=== PATIENT | female | born 1940 | race Caucasian/White ===

== ENCOUNTER 2021-07-31 12:06 | Outpatient (REF) | payer MEDICARE, MEDICAID, SELFPAY ==
[2021-07-31 13:49] LABS: Hematocrit 38.5 % (37.0-47.0); Hemoglobin 12.7 g/dl (12.0-16.0); Mean Corpuscular Hemoglobin 35.2 pg (27.0-33.0); Mean Corpuscular Volume 106.6 fL (80.0-98.0); Mean Platelet Volume 11.5 fL (9.4-12.3); Platelet Count 166 X10*3/uL (160-400); Red Blood Count 3.61 X10*6/uL (4.20-5.50); White Blood Count 7.7 X10*3/uL (4.8-10.8)
[2021-07-31 14:04] LABS: Alanine Aminotransferase 11 U/L (0-31); Albumin Level 3.7 g/dL (3.5-5.0); Alkaline Phosphatase 83 U/L (39-117); Anion Gap 11 (12-20); Aspartate Amino Transferase 37 U/L (5-31); Bilirubin Total 0.8 mg/dL (0.0-1.0); Blood Urea Nitrogen 13 mg/dL (9-16); Calcium 9.4 mg/dL (8.4-10.2); Carbon Dioxide 28 mmol/L (22-29); Chloride 104 mmol/L (96-108); Cholesterol 187 mg/dL; Estimated Glomerular Filt Rate > 60; Glucose Fasting 196 mg/dL (60-99); HDL Cholesterol 53 mg/dL; LDL Cholesterol Calculated 105 mg/dl; Potassium 4.5 mmol/L (3.3-5.1); Sodium 138 mmol/L (135-145); Total Protein 6.9 g/dL (6.5-8.0); Triglycerides 146 mg/dL
[2021-07-31 16:27] LABS: Estimated Average Glucose 111 mg/dL; Hemoglobin A1C 126.3166 umol/L; Hemoglobin A1c % 5.5 %
== END 2021-07-31 12:07 | disposition home or self-care (01) ==
LOC: HO.HMGCLDS 12:06
PROVIDERS: PCP Internal Medicine; Visit Provider Internal Medicine
DX: E78.5 Hyperlipidemia, unspecified (principal); I10 Essential (primary) hypertension; R73.9 Hyperglycemia, unspecified
CPT/HCPCS: 36415; 80053; 80061; 83036; 85027

== ENCOUNTER → 2022-10-08 13:53 | Outpatient (REF) | payer MEDICARE, MEDICAID, SELFPAY | LOC: HO.CARD 13:53 | PROVIDERS: Visit Provider Internal Medicine | DX: Z00.00 Encounter for general adult medical examination without abnormal findings (principal); I48.91 Unspecified atrial fibrillation; R73.9 Hyperglycemia, unspecified; I10 Essential (primary) hypertension; E78.5 Hyperlipidemia, unspecified | CPT/HCPCS: 93225; 93306 ==

== ENCOUNTER 2022-10-21 13:17 | Outpatient (AMB) | payer OTHER, MEDICAID, SELFPAY ==
[2022-10-21 13:20] VITALS: BP 134/80; PULSE 97; O2SAT 96; BMI 31.2
--- NOTE | 2022-10-21 13:20 | MHC.PC.OV ---
Vital Signs 10/21/22 13:20 Height 5 ft Weight 160 lb BMI 31.2 BP 134/80 Blood Pressure Location Lt brachial Position Sitting Pulse 97 Pulse Source Pulse Oximeter Pulse Oximetry (%) 96 Oxygen Delivery Method Room Air Intake Visit Reasons: 4 weeks follow up Intake Note: Pt is here today for a follow up visit on 4 weeks follow up visit. Allergies ciprofloxacin [Cipro] Allergy (Unknown, Verified 10/21/22 13:22) weakness dizziness metronidazole [Flagyl] Allergy (Unknown, Verified 10/21/22 13:22) Dizziness Medication List - Last Reconciled 10/21/22 by Jane Plunkett MD latanoprost 0.005% 0 drps ophthalmic (eye) lisinopril 30 mg PO DAILY metoprolol succinate ER 25 mg PO DAILY metoprolol succinate ER 50 mg PO DAILY omega-3 fatty acids (Fish Oil Concentrate) 1,000 mg PO DAILY pravastatin 40 mg PO DAILY Tobacco use date assessed: 09/15/22 Dental Screening Dental Screen Date: 10/21/22 Did you have a dental visit in the last 12 months?: Yes Did you have a dental problem in the last 6 months where you did not have access to dental care?: No Was dental information given to patient?: Patient has dentist HPI 4 weeks follow up HPI Details Patient presents for the follow-up of after tachycardia. Holter monitor was negative for AFib showed frequent APCs. echocardiogram showed hyperdynamic ejection fraction >70%, heavy mitral valve calcification, mild to moderate mitral stenosis and mild mitral regurgitation. [facility] Medical History (Updated 10/21/22 @ 14:00 by Jane Plunkett MD) Abdominal wall hernia Annual physical exam Diverticulosis HTN (hypertension) Hyperglycemia Hyperlipidemia Mammogram normal Normal colonoscopy Surgical History Hx of colectomy Total knee replacement status Family History Father No problems noted. Mother Hypertension Social History Household Members Other:: , retired, 2 adult children, 11 grandchildren Housing: House Alcohol intake: current Alcohol intake frequency: holidays/special occasions only Patient Tobacco Use Status: Never used Tobacco e-Cigarette/Vaping Use: Never Used Current occupational status: retired Cognitive needs: No Hearing needs: No Vision needs: Yes Questionnaire Thrive Questionnaire Date Thrive assessed: 09/15/22 FELA-7 AMB Questionnaire FELA-7 Date FELA - 7 assessed: 09/15/22 Source: Developed by Drs. Tal Metcalf, Mary Lou Higginbotham, Orlando Brown and colleagues, with an educational char from [employer]. Review of Systems Const All systems reviewed & are unremarkable except as noted in HPI and below Reports no additional complaints Eyes Reports no additional complaints ENT Reports no additional complaints Card Reports no additional complaints Resp Reports no additional complaints GI Reports no additional complaints Reports no additional complaints Physical exam (Primary Care) Vital Signs: Last Vital Signs Pulse 97 10/21/22 13:20 BP 134/80 10/21/22 13:20 Pulse Ox 96 10/21/22 13:20 Oxygen Delivery Method Room Air 10/21/22 13:20 BMI result Body Mass Index 31.2 Tobacco/Smoking Status: Tobacco use Status Tobacco use date assessed 09/15/22 10/21/22 13:27 Patient Tobacco Use Status Never used Tobacco 10/21/22 13:27 e-Cigarette/Vaping Use Never Used 10/21/22 13:27 Thrive Assessment: Date of Thrive Assessment Date Thrive assessed 09/15/22 10/21/22 13:27 HENMT Head: Yes normal to inspection Throat: Yes posterior oropharynx normal Resp Effort & Inspection: normal respiratory effort Auscultation: clear to auscultation bilaterally Cardio Rhythm: regular rhythm Heart sounds: S1 normal heart sound present and S2 normal heart sound present GI Inspection: Yes normal to inspection Palpation (GI): Soft to palpation Auscultation: normal bowel sounds Assessment and Plan Assessment & Plan (1) Atrial tachycardia: Comment: Holter 10/01, frequent APCs, echo with hyperdynamic left ventriclular systolic function, heavy mitral valve calcifications mild mitral regurgitation, mild to moderate mitral stenosis 10/01 Code(s): I47.1 - Supraventricular tachycardia Plan: Continue metoprolol. (2) Hyperlipidemia: Code(s): E78.5 - Hyperlipidemia, unspecified Plan: Continue statin (3) HTN (hypertension): Code(s): I10 - Essential (primary) hypertension Plan: Continue lisinopril and return for fasting blood work. Follow-up in 3 months Medications: Refilled lisinopril 30 mg PO DAILY 90 tabs 3RF Discontinued metoprolol succinate ER Discontinued Reason: Doctor's Order 25 mg PO DAILY 90 tabs 3RF Coding Level of Care Code Est Pt Level 4 (14399) Diagnoses Atrial tachycardia I47.1 Hyperlipidemia E78.5 HTN (hypertension) I10
== END 2022-10-21 14:03 | disposition home or self-care (01) ==
PROVIDERS: Visit Provider Internal Medicine
DX: I47.1 Supraventricular tachycardia (principal); E78.5 Hyperlipidemia, unspecified; I10 Essential (primary) hypertension
CPT/HCPCS: 99214

== ENCOUNTER 2022-12-20 08:52 | Outpatient (REF) | payer MEDICARE, MEDICAID, SELFPAY ==
[2022-12-20 11:19] LABS: MANUAL DIFF FLAG NO
[2022-12-20 12:08] LABS: Estimated Average Glucose 114 mg/dL; Hemoglobin A1c % 5.6 % (<6.0)
[2022-12-20 12:20] LABS: Alanine Aminotransferase 16 U/L (0-31); Albumin Level 3.6 g/dL (3.5-5.0); Alkaline Phosphatase 71 U/L (39-117); Anion Gap 11 (12-20); Aspartate Amino Transferase 37 U/L (5-31); Bilirubin Total 0.7 mg/dL (0.0-1.0); Blood Urea Nitrogen 14 mg/dL (9-16); Calcium 9.7 mg/dL (8.4-10.2); Carbon Dioxide 27 mmol/L (22-29); Chloride 107 mmol/L (96-108); Cholesterol 158 mg/dL (<200); Estimated Glomerular Filt Rate > 60; Glucose Fasting 153 mg/dL (60-99); HDL Cholesterol 43 mg/dL (>40); LDL Cholesterol Calculated 88 mg/dL (<100); Magnesium 1.8 mg/dL (1.6-2.6); Sodium 141 mmol/L (135-145); Total Protein 7.2 g/dL (6.5-8.0); Triglycerides 139 mg/dL (<150)
[2022-12-20 12:30] LABS: TSH reflex Free T4 1.06 uIU/mL (0.32-4.0)
[2022-12-20 12:33] LABS: Creatinine Urine 161.15 mg/dL; Microalbumin Urine < 5.0 mg/L
[2022-12-20 13:05] LABS: Basophils Percent Auto 0.6 % (0-2); Eosinophils Absolute Auto 0.3 X10*3/uL (0.0-0.4); Eosinophils Percent Auto 4.2 % (0-4); Hematocrit 41.2 % (37.0-47.0); Hemoglobin 13.8 g/dl (12.0-16.0); Imm Gran Abs Auto 0.03 X10*3/uL (0.00-0.03); Imm Gran Pct Auto 0.5 % (0.0-0.4); Lymphocytes Absolute Auto 2.2 X10*3/uL (1.2-4.9); Lymphocytes Percent Auto 35.6 % (20-40); Mean Corpuscular HGB Conc 33.5 g/dl (31.0-35.0); Mean Corpuscular Hemoglobin 34.7 pg (27.0-33.0); Mean Corpuscular Volume 103.5 fL (80.0-98.0); Mean Platelet Volume 11.3 fL (9.4-12.3); Monocytes Absolute Auto 0.5 X10*3/uL (0.1-1.2); Monocytes Percent Auto 8.6 % (2-11); Neutrophils Absolute Auto 3.2 x10*3/uL (2.0-8.3); Neutrophils Percent Auto 50.5 % (45-73); Platelet Count 171 X10*3/uL (160-400); Red Blood Count 3.98 X10*6/uL (4.20-5.50); Red Cell Distribution Width 12.8 % (11.0-16.0); White Blood Count 6.3 X10*3/uL (4.8-10.8)
== END 2022-12-20 08:53 | disposition home or self-care (01) ==
LOC: HO.HMGCLDS 08:52
PROVIDERS: PCP Internal Medicine; Visit Provider Internal Medicine
DX: Z00.00 Encounter for general adult medical examination without abnormal findings (principal); I48.91 Unspecified atrial fibrillation; R73.9 Hyperglycemia, unspecified; E78.5 Hyperlipidemia, unspecified; I10 Essential (primary) hypertension
CPT/HCPCS: 36415; 80053; 80061; 82043; 82570; 83036; 83735; 84443; 85025

== ENCOUNTER 2023-01-21 12:30 | Outpatient (AMB) | payer OTHER, MEDICAID, SELFPAY ==
[2023-01-21 12:31] VITALS: BP 130/80; PULSE 87; O2SAT 98; BMI 31.2
--- NOTE | 2023-01-21 12:31 | A.OFFPC_ITS ---
Vital Signs 01/21/23 12:31 Height 5 ft Weight 160 lb BMI 31.2 BP 130/80 Blood Pressure Location Lt brachial Position Sitting Pulse 87 Pulse Source Pulse Oximeter Pulse Oximetry (%) 98 Oxygen Delivery Method Room Air Intake Visit Reasons: 3m follow up HTN Intake Note: Pt is here today for 3 months follow up visit on HTN. Allergies ciprofloxacin [Cipro] Allergy (Unknown, Verified 01/21/23 12:35) weakness dizziness metronidazole [Flagyl] Allergy (Unknown, Verified 01/21/23 12:35) Dizziness Medication List - Last Reconciled 01/21/23 by Jane Plunkett MD latanoprost 0.005% 0 drps ophthalmic (eye) lisinopril 30 mg PO DAILY metoprolol succinate ER 50 mg PO DAILY omega-3 fatty acids (Fish Oil Concentrate) 1,000 mg PO DAILY pravastatin 40 mg PO DAILY Tobacco use date assessed: 09/15/22 HPI 3m follow up HTN HPI Details Pt presents for HTN and hyperlipid, stable on meds. Patient is upset because off her 's illness [facility] Medical History Hyperglycemia Annual physical exam Hyperlipidemia HTN (hypertension) Normal colonoscopy Abdominal wall hernia Mammogram normal Diverticulosis Surgical History Hx of colectomy Total knee replacement status Family History Father No problems noted. Mother Hypertension Social History Household Members Other:: , retired, 2 adult children, 11 grandchildren Housing: House Alcohol intake: current Alcohol intake frequency: holidays/special occasions only Patient Tobacco Use Status: Never used Tobacco e-Cigarette/Vaping Use: Never Used Current occupational status: retired Cognitive needs: No Hearing needs: No Vision needs: Yes Questionnaire Thrive Questionnaire Date Thrive assessed: 09/15/22 FELA-7 AMB Questionnaire FELA-7 Date FELA - 7 assessed: 09/15/22 Source: Developed by Drs. Tal Metcalf, Mary Lou Higginbotham, Orlando Brown and colleagues, with an educational char from [employer]. Review of Systems Const All systems reviewed & are unremarkable except as noted in HPI and below Reports no additional complaints Eyes Reports no additional complaints ENT Reports no additional complaints Card Reports no additional complaints Resp Reports no additional complaints GI Reports no additional complaints Reports no additional complaints Physical exam (Primary Care) Vital Signs: Last Vital Signs Pulse 87 01/21/23 12:31 BP 130/80 01/21/23 12:31 Pulse Ox 98 01/21/23 12:31 Oxygen Delivery Method Room Air 01/21/23 12:31 BMI result Body Mass Index 31.2 Tobacco/Smoking Status: Tobacco use Status Tobacco use date assessed 09/15/22 01/21/23 12:37 Patient Tobacco Use Status Never used Tobacco 01/21/23 12:37 e-Cigarette/Vaping Use Never Used 01/21/23 12:37 Thrive Assessment: Date of Thrive Assessment Date Thrive assessed 09/15/22 01/21/23 12:37 Const General: no acute distress HENMT Head: Yes normal to inspection Face and sinus: Yes normal facial exam Resp Effort & Inspection: normal respiratory effort Auscultation: clear to auscultation bilaterally Cardio Rhythm: regular rhythm Heart sounds: S1 normal heart sound present and S2 normal heart sound present GI Inspection: Yes normal to inspection Palpation (GI): Soft to palpation and No hepatosplenomegaly present Percussion: Yes normal to percussion Assessment and Plan Assessment & Plan (1) Hyperglycemia: Code(s): R73.9 - Hyperglycemia, unspecified Plan: A1c is 5.6 continue ADA diet regular physical activity. Follow-up in 6 months with fasting labs before (2) Atrial tachycardia: Comment: Holter 10/01, frequent APCs, echo with hyperdynamic left ventriclular systolic function, heavy mitral valve calcifications mild mitral regurgitation, mild to moderate mitral stenosis 10/01, pt could not tolerate 50 mg of Metoprolol Code(s): I47.1 - Supraventricular tachycardia Plan: Continue 25 mg of metoprolol (3) Hyperlipidemia: Code(s): E78.5 - Hyperlipidemia, unspecified Plan: Continue statin (4) HTN (hypertension): Code(s): I10 - Essential (primary) hypertension Plan: Continue current medications Medications: Changed From metoprolol succinate ER 50 mg PO DAILY 90 tabs 1RF To metoprolol succinate ER 25 mg (1/2 x 50 mg) PO DAILY 90 tabs 1RF Coding Level of Care Code Est Pt Level 4 (43868) Diagnoses Hyperglycemia R73.9 Atrial tachycardia I47.1 Hyperlipidemia E78.5 HTN (hypertension) I10
== END 2023-01-21 13:11 | disposition home or self-care (01) ==
PROVIDERS: Visit Provider Internal Medicine
DX: R73.9 Hyperglycemia, unspecified (principal); I47.1 Supraventricular tachycardia; E78.5 Hyperlipidemia, unspecified; I10 Essential (primary) hypertension
CPT/HCPCS: 99214

== ENCOUNTER 2023-03-22 09:20 | Outpatient (AMB) | payer MEDICARE, MEDICAID, SELFPAY ==
[2023-03-22 09:23] VITALS: BP 135/78; PULSE 102; O2SAT 98; BMI 30.7
--- NOTE | 2023-03-22 09:23 | MHC.PC.OV ---
Vital Signs 03/22/23 09:23 Height 5 ft Weight 157 lb BMI 30.7 BP 135/78 Blood Pressure Location Lt brachial Position Sitting Pulse 102 H Pulse Source Pulse Oximeter Pulse Oximetry (%) 98 Oxygen Delivery Method Room Air Intake Visit Reasons: Hospital follow up [facility] Intake Note: Pt is here today for Hospital follow up visit. Allergies ciprofloxacin [Cipro] Allergy (Unknown, Verified 03/22/23 09:33) weakness dizziness metronidazole [Flagyl] Allergy (Unknown, Verified 03/22/23 09:33) Dizziness Tobacco use date assessed: 03/22/23 Fall risk assessment: 1 Fall in past year Last assessed Fall Risk: 03/22/23 Dental Screening Dental Screen Date: 03/22/23 Did you have a dental visit in the last 12 months?: No Did you have a dental problem in the last 6 months where you did not have access to dental care?: No Was dental information given to patient?: Patient declined HPI Hospital follow up [facility] HPI Details Patient presents for the follow-up of ER visit for needing syncope episode in the [facility]. Patient was found to have high blood pressure to forgetting taking BP meds. [facility] Medical History Hyperglycemia Annual physical exam Hyperlipidemia HTN (hypertension) Normal colonoscopy Abdominal wall hernia Mammogram normal Diverticulosis Surgical History Hx of colectomy Total knee replacement status Family History Father No problems noted. Mother Hypertension Social History Household Members Other:: , retired, 2 adult children, 11 grandchildren Housing: House Alcohol intake: current Alcohol intake frequency: holidays/special occasions only Patient Tobacco Use Status: Never used Tobacco e-Cigarette/Vaping Use: Never Used Current occupational status: retired Cognitive needs: No Hearing needs: No Vision needs: Yes Questionnaire Thrive Questionnaire Date Thrive assessed: 09/15/22 FELA-7 AMB Questionnaire FELA-7 Date FELA - 7 assessed: 09/15/22 Source: Developed by Drs. Tal Metcalf, Mary Lou Higginbotham, Orlando Brown and colleagues, with an educational char from [employer]. Review of Systems Const All systems reviewed & are unremarkable except as noted in HPI and below Reports no additional complaints Eyes Reports no additional complaints ENT Reports no additional complaints Card Reports no additional complaints Resp Reports no additional complaints GI Reports no additional complaints Reports no additional complaints Physical exam (Primary Care) Vital Signs: Last Vital Signs Pulse 102 H 03/22/23 09:23 BP 140/78 H 03/22/23 09:23 Pulse Ox 98 03/22/23 09:23 Oxygen Delivery Method Room Air 03/22/23 09:23 BMI result Body Mass Index 30.7 Tobacco/Smoking Status: Tobacco use Status Tobacco use date assessed 03/22/23 03/22/23 09:25 Patient Tobacco Use Status Never used Tobacco 03/22/23 09:25 e-Cigarette/Vaping Use Never Used 03/22/23 09:25 Thrive Assessment: Date of Thrive Assessment Date Thrive assessed 09/15/22 03/22/23 09:25 Const General: no acute distress HENMT Head: Yes normal to inspection Face and sinus: Yes normal facial exam Throat: Yes posterior oropharynx normal Eyes General: appearance normal, both eyes and all related structures Neck Neck: Yes no lymphadenopathy and Yes supple Resp Effort & Inspection: normal respiratory effort Auscultation: clear to auscultation bilaterally Cardio Rhythm: regular rhythm Heart sounds: S1 normal heart sound present and S2 normal heart sound present GI Inspection: Yes normal to inspection Palpation (GI): Soft to palpation Percussion: Yes normal to percussion Auscultation: normal bowel sounds Assessment and Plan Assessment & Plan (1) Hyperglycemia: Code(s): R73.9 - Hyperglycemia, unspecified Plan: Continue ADA diet follow-up in 3 months with a fasting labs be (2) Hyperlipidemia: Code(s): E78.5 - Hyperlipidemia, unspecified Plan: Continue statin (3) HTN (hypertension): Comment: White coat syndrome Code(s): I10 - Essential (primary) hypertension Plan: Continue current medications (4) Atrial tachycardia: Comment: Holter 10/01, frequent APCs, echo with hyperdynamic left ventriclular systolic function, heavy mitral valve calcifications mild mitral regurgitation, mild to moderate mitral stenosis 10/01, pt could not tolerate 50 mg of Metoprolol Code(s): I47.1 - Supraventricular tachycardia Plan: Continue metoprolol (5) Anxiety: Code(s): F41.9 - Anxiety disorder, unspecified Plan: FOR CHRONIC ANXIETY START 25 MG OF ZOLOFT Orders: Orders Comprehensive [place]. Panel Fast 3 Months E78.5 - Hyperlipidemia, unspecified, I10 - Essential (primary) hypertension, I47.1 - Supraventricular tachycardia, R73.9 - Hyperglycemia, unspecified Vitamin B12 and Folate 3 Months E78.5 - Hyperlipidemia, unspecified, I10 - Essential (primary) hypertension, I47.1 - Supraventricular tachycardia, R73.9 - Hyperglycemia, unspecified Complete Blood Count Auto Diff 3 Months E78.5 - Hyperlipidemia, unspecified, I10 - Essential (primary) hypertension, I47.1 - Supraventricular tachycardia, R73.9 - Hyperglycemia, unspecified Hemoglobin A1c 3 Months E78.5 - Hyperlipidemia, unspecified, I10 - Essential (primary) hypertension, I47.1 - Supraventricular tachycardia, R73.9 - Hyperglycemia, unspecified Medications: New metoprolol succinate ER 25 mg PO DAILY 90 tabs 3RF sertraline 25 mg PO DAILY 90 tabs 1RF Discontinued metoprolol succinate ER Discontinued Reason: Doctor's Order 25 mg (1/2 x 50 mg) PO DAILY 90 tabs 1RF Coding Level of Care Code Est Pt Level 4 (27808) Diagnoses Hyperglycemia R73.9 Hyperlipidemia E78.5 HTN (hypertension) I10 Atrial tachycardia I47.1 Anxiety F41.9
== END 2023-03-22 11:06 | disposition home or self-care (01) ==
PROVIDERS: PCP Internal Medicine; Visit Provider Internal Medicine
DX: R73.9 Hyperglycemia, unspecified (principal); E78.5 Hyperlipidemia, unspecified; I10 Essential (primary) hypertension; I47.1 Supraventricular tachycardia; F41.9 Anxiety disorder, unspecified
CPT/HCPCS: 99214

== ENCOUNTER 2023-12-14 09:59 | Outpatient (AMB) | payer MEDICARE, MEDICAID, SELFPAY ==
[2023-12-14 10:01] VITALS: BP 136/78; PULSE 100; O2SAT 99; BMI 28.7
--- NOTE | 2023-12-14 10:01 | MHC.PC.OV ---
Vital Signs 12/14/23 10:01 Height 5 ft Weight 147 lb BMI 28.7 BP 136/78 Blood Pressure Location Lt brachial Position Sitting Pulse 100 Pulse Source Pulse Oximeter Pulse Oximetry (%) 99 Oxygen Delivery Method Room Air Intake Visit Reasons: Annual Physical Intake Note: Pt is here today for PE. Allergies ciprofloxacin [Cipro] Allergy (Unknown, Verified 12/14/23 10:04) weakness dizziness metronidazole [Flagyl] Allergy (Unknown, Verified 12/14/23 10:04) Dizziness Medication List - Last Reconciled 12/14/23 by Jane Plunkett MD latanoprost 0.005% 0 drps ophthalmic (eye) lisinopril 30 mg PO DAILY metoprolol succinate ER 25 mg PO DAILY omega-3 fatty acids (Fish Oil Concentrate) 1,000 mg PO DAILY pravastatin 40 mg PO DAILY sertraline 25 mg PO DAILY Tobacco use date assessed: 12/14/23 Fall risk assessment: 1 Fall in past year Last assessed Fall Risk: 12/14/23 Dental Screening Dental Screen Date: 12/14/23 Did you have a dental visit in the last 12 months?: Yes Did you have a dental problem in the last 6 months where you did not have access to dental care?: No Was dental information given to patient?: Patient has dentist HPI Annual Physical HPI Details Pt is for PE. Patient complains of chronic and persistent left knee pain worse when walking but also at rest. [facility] Medical History Hyperglycemia Annual physical exam Hyperlipidemia HTN (hypertension) Normal colonoscopy Abdominal wall hernia Mammogram normal Diverticulosis Surgical History Hx of colectomy Total knee replacement status Family History Father No problems noted. Mother Hypertension Social History Household Members Other:: , retired, 2 adult children, 11 grandchildren Housing: House Alcohol intake: current Alcohol intake frequency: holidays/special occasions only Patient Tobacco Use Status: Never used Tobacco e-Cigarette/Vaping Use: Never Used service: No Current occupational status: retired Cognitive needs: No Hearing needs: No Vision needs: Yes Questionnaire PHQ-9 Over the last 2 weeks, how often have you been bothered by any of the following problems? 1. Little interest or pleasure in doing things: not at all 2. Feeling down, depressed, or hopeless: not at all 3. Trouble falling or staying asleep, or sleeping too much: not at all 4. Feeling tired or having little energy: not at all 5. Poor appetite or overeating: not at all 6. Feeling bad about yourself - or that you are a failure or have let yourself or your family down: not at all 7. Trouble concentrating on things, such as reading the newspaper or watching television: not at all 8. Moving or speaking so slowly that other people could have noticed. Or the opposite - being so fidgety or restless that you have been moving around a lot more than usual: not at all 9. Thoughts that you would be better off or of hurting yourself in some way: not at all Total score: 0 Depression Screening Interpretation: Negative Depression Screening Done: Yes 97029 - PHQ-9 Billing: Yes Source: Developed by Drs. Tal Metcalf, Mary Lou Higginbotham, Orlando Brown and colleagues, with an educational char from [employer]. Thrive Questionnaire Date Thrive assessed: 12/14/23 I am a: Patient What is your living situation today?: I have a steady place to live Within the past 12 months, did the food you bought not last and you didn't have the money to get more?: Never true Within the past 12 months, did you worry whether your food would run out before you got money to buy more?: Never true Do you have trouble paying for medicines?: No Do you have trouble getting transportation to medical appointments?: No Do you have trouble paying your heating and electricity bill?: No Do you have trouble taking care of your child, family member or friend?: No Do you have trouble with day-to-day activities such as bathing, preparing meals, shopping, managing finances, etc.?: No Are you currently unemployed and looking for a job?: No Are you interested in more education?: No Please select the resources that you would like help with: None THRIVE Score: 0 FELA-7 AMB Questionnaire FELA-7 Date FELA - 7 assessed: 12/14/23 Feeling nervous, anxious, or on edge: 0 = Not at all Not being able to stop or control worryin = Not at all Worrying too much about different things: 0 = Not at all Trouble relaxin = Not at all Being so restless that it is hard to sit still: 0 = Not at all Becoming easily annoyed or irritable: 0 = Not at all Feeling afraid as if something awful might happen: 0 = Not at all Total FELA-7 score (0-4 normal; 5-9 mild; 10-14 moderate; 15-21 severe): 0 Source: Developed by Drs. Tal Metcalf, Mary Lou Higginbotham, Orlando Brown and colleagues, with an educational char from [employer]. FELA-7 Assessment Billing FELA-7 Assessment Tool: FELA-7 Assessment 40380 Review of Systems Const All systems reviewed & are unremarkable except as noted in HPI and below Reports no additional complaints Eyes Reports no additional complaints ENT Reports no additional complaints Card Reports no additional complaints Resp Reports no additional complaints GI Reports no additional complaints Reports no additional complaints Physical exam (Primary Care) Vital Signs: Last Vital Signs Pulse 100 12/14/23 10:01 BP 136/78 12/14/23 10:01 Pulse Ox 99 12/14/23 10:01 Oxygen Delivery Method Room Air 12/14/23 10:01 BMI result Body Mass Index 28.7 Tobacco/Smoking Status: Tobacco use Status Tobacco use date assessed 12/14/23 12/14/23 10:08 Patient Tobacco Use Status Never used Tobacco 12/14/23 10:08 e-Cigarette/Vaping Use Never Used 12/14/23 10:08 PHQ-9: PHQ-9 Score PHQ-9: Total score 0 12/14/23 10:08 Depression Screening Interpretation: Negative Thrive Assessment: Date of Thrive Assessment Date Thrive assessed 12/14/23 12/14/23 10:08 Const General: no acute distress HENMT Head: Yes normal to inspection Ears: hearing grossly normal bilaterally General nose exam: Normal external nose present Face and sinus: Yes normal facial exam Throat: Yes posterior oropharynx normal Eyes General: appearance normal, both eyes and all related structures Neck Neck: Yes no lymphadenopathy and Yes supple Resp Effort & Inspection: normal respiratory effort Auscultation: clear to auscultation bilaterally Cardio Rhythm: regular rhythm Heart sounds: S1 normal heart sound present and S2 normal heart sound present GI Inspection: Yes normal to inspection Palpation (GI): Soft to palpation Percussion: Yes normal to percussion Auscultation: normal bowel sounds Extrem Other: Decreased range of motion of the left knee, no soft tissue swelling erythema or warmth Assessment and Plan Assessment & Plan (1) Atrial tachycardia: Comment: Holter 10/01, frequent APCs, echo with hyperdynamic left ventriclular systolic function, heavy mitral valve calcifications mild mitral regurgitation, mild to moderate mitral stenosis 10/01, pt could not tolerate 50 mg of Metoprolol Code(s): I47.1 - Supraventricular tachycardia Plan: cont Metoprolol (2) Hyperglycemia: Code(s): R73.9 - Hyperglycemia, unspecified Plan: ADA diet, exercise, check A1C (3) Annual physical exam: Code(s): Z00.00 - Encounter for general adult medical examination without abnormal findings Plan: Well-balanced diet regular exercise discussed with the patient (4) HTN (hypertension): Comment: White coat syndrome Code(s): I10 - Essential (primary) hypertension Plan: Continue current medications (5) Knee pain: Code(s): M25.569 - Pain in unspecified knee Plan: For persistent left knee pain x-ray will be obtained and patient is referred to ortho Orders: Orders Complete Blood Count Auto Diff Today I10 - Essential (primary) hypertension, I47.1 - Supraventricular tachycardia, R73.9 - Hyperglycemia, unspecified, Z00.00 - Encounter for general adult medical examination without abnormal findings Comprehensive [place]. Panel Fast Today I10 - Essential (primary) hypertension, I47.1 - Supraventricular tachycardia, R73.9 - Hyperglycemia, unspecified, Z00.00 - Encounter for general adult medical examination without abnormal findings Lipid Panel Today I10 - Essential (primary) hypertension, I47.1 - Supraventricular tachycardia, R73.9 - Hyperglycemia, unspecified, Z00.00 - Encounter for general adult medical examination without abnormal findings Hemoglobin A1c Today R73.9 - Hyperglycemia, unspecified Comprehensive [place]. Panel Fast 1 Year E78.5 - Hyperlipidemia, unspecified, I10 - Essential (primary) hypertension, R73.9 - Hyperglycemia, unspecified, Z00.00 - Encounter for general adult medical examination without abnormal findings Lipid Panel 1 Year E78.5 - Hyperlipidemia, unspecified, I10 - Essential (primary) hypertension, R73.9 - Hyperglycemia, unspecified, Z00.00 - Encounter for general adult medical examination without abnormal findings Complete Blood Count Auto Diff 1 Year E78.5 - Hyperlipidemia, unspecified, I10 - Essential (primary) hypertension, R73.9 - Hyperglycemia, unspecified, Z00.00 - Encounter for general adult medical examination without abnormal findings TSH reflex Free T4 Today I10 - Essential (primary) hypertension, I47.1 - Supraventricular tachycardia, R73.9 - Hyperglycemia, unspecified, Z00.00 - Encounter for general adult medical examination without abnormal findings XR knee LT 2V Today M25.569 - Pain in unspecified knee Referrals Orthopedics Referral M25.569 - Pain in unspecified knee Medications: Refilled metoprolol succinate ER 25 mg PO DAILY 90 tabs 3RF lisinopril 30 mg PO DAILY 90 tabs 3RF Discontinued sertraline Discontinued Reason: Doctor's Order 25 mg PO DAILY 90 tabs 1RF Coding Level of Care Code Est Pt Prev Care >65y(79627) Diagnoses Atrial tachycardia I47.1 Hyperglycemia R73.9 Annual physical exam Z00.00 HTN (hypertension) I10 Knee pain M25.569 Additional Codes FELA-7 Assessment Billing - FELA-7 Assessment Tool: FELA-7 Assessment 07699 ([id number])
== END 2023-12-14 10:38 | disposition home or self-care (01) ==
PROVIDERS: PCP Internal Medicine; Visit Provider Internal Medicine
DX: Z00.00 Encounter for general adult medical examination without abnormal findings (principal); I47.10 Supraventricular tachycardia, unspecified; R73.9 Hyperglycemia, unspecified; I10 Essential (primary) hypertension; M25.562 Pain in left knee
CPT/HCPCS: 99397

== ENCOUNTER 2023-12-14 10:27 | Outpatient (REF) | payer MEDICARE, MEDICAID, SELFPAY ==
--- NOTE | ~2023-12-14 | XR_ITS ---
EXAMINATION: XR KNEE, LEFT CLINICAL INFORMATION: Left knee pain. Arthroplasty. COMPARISON: None available. TECHNIQUE: AP and lateral views of the left knee. FINDINGS: Left knee arthroplasty in expected anatomic alignment. No hardware or osseous fracture. No perihardware lucency to suggest loosening or infection. No concerning lytic or blastic osseous lesion. Trace joint effusion. Atherosclerotic calcifications. XR/XR knee LT 2V IMPRESSION: Left knee arthroplasty without evidence of complication. Trace joint effusion. Electronically signed by: Ben Chung MD 12/29/2023 08:56 PM EDT
== END 2023-12-14 10:28 | disposition home or self-care (01) ==
LOC: HO.HMGCX 10:27
PROVIDERS: PCP Internal Medicine; Visit Provider Internal Medicine
DX: M25.562 Pain in left knee (principal)
CPT/HCPCS: 73560

== ENCOUNTER 2024-02-09 | Outpatient (REF) | payer MEDICARE, MEDICAID, SELFPAY | END 2024-02-09 00:01 | disposition home or self-care (01) | LOC: CF | PROVIDERS: PCP Internal Medicine; Visit Provider Internal Medicine | DX: N39.0 Urinary tract infection, site not specified (principal); A41.9 Sepsis, unspecified organism; K80.20 Calculus of gallbladder without cholecystitis without obstruction; R93.89 Abnormal findings on diagnostic imaging of other specified body structures; N19 Unspecified kidney failure | CPT/HCPCS: 99212 ==

== ENCOUNTER 2024-02-09 13:47 | Outpatient (AMB) | payer MEDICARE, MEDICAID, SELFPAY ==
[2024-02-09 13:48] VITALS: BP 130/80; PULSE 93; O2SAT 97
--- NOTE | 2024-02-09 13:48 | A.OFFPC_ITS ---
Vital Signs 02/09/24 13:48 Height 5 ft BMI Reason not done Patient refused/unable BP 130/80 Blood Pressure Location Lt brachial Position Sitting Pulse 93 Pulse Source Pulse Oximeter Pulse Oximetry (%) 97 Oxygen Delivery Method Room Air Intake Visit Reasons: Hospital follow up visit Intake Note: Pt is here today for Hospital follow up visit. Allergies ciprofloxacin [Cipro] Allergy (Unknown, Verified 02/09/24 13:53) weakness dizziness metronidazole [Flagyl] Allergy (Unknown, Verified 02/09/24 13:53) Dizziness Medication List - Last Reconciled 02/09/24 by Jane Plunkett MD latanoprost 0.005% 0 drps ophthalmic (eye) lisinopril 30 mg PO DAILY metoprolol succinate ER 25 mg PO DAILY omega-3 fatty acids (Fish Oil Concentrate) 1,000 mg PO DAILY pravastatin 40 mg PO DAILY Tobacco use date assessed: 02/09/24 Dental Screening Dental Screen Date: 12/14/23 HPI Hospital follow up visit HPI Details Patient presents for the follow-up hospitalization at [facility] for urosepsis , E coli bacteremia, acute renal failure elevated LFTs. Patient completed a course antibiotic and complains of feeling weak but starting to ambulate with a walker at home. Patient denies palpitations, chest pains, PND or orthopnea. She has been taking metoprolol only. lisinopril was discontinued because of low blood pressure and renal failure. Patient was found to have thickening endometrium and has an appointment scheduled with store loss prevention manager. She denies postmenopausal bleeding or spotting. Patient has a history of endometrial biopsy a few years ago. [facility] Medical History (Updated 02/09/24 @ 14:27 by Jane Plunkett MD) Hyperglycemia Annual physical exam Hyperlipidemia HTN (hypertension) Normal colonoscopy Abdominal wall hernia Mammogram normal Diverticulosis Surgical History Hx of colectomy Total knee replacement status Family History Father No problems noted. Mother Hypertension Social History Household Members Other:: , retired, 2 adult children, 11 grandchildren Housing: House Alcohol intake: current Alcohol intake frequency: holidays/special occasions only Patient Tobacco Use Status: Never used Tobacco e-Cigarette/Vaping Use: Never Used service: No Current occupational status: retired Cognitive needs: No Hearing needs: No Vision needs: Yes Questionnaire Thrive Questionnaire Date Thrive assessed: 12/14/23 FELA-7 AMB Questionnaire FELA-7 Date FELA - 7 assessed: 12/14/23 Source: Developed by Drs. Tal Metcalf, Mary Lou Higginbotham, Orlando Brown and colleagues, with an educational char from [employer]. Review of Systems Const All systems reviewed & are unremarkable except as noted in HPI and below Eyes Reports no additional complaints ENT Reports no additional complaints Card Reports no additional complaints Resp Reports no additional complaints GI Reports no additional complaints Reports no additional complaints Physical exam (Primary Care) Vital Signs: Last Vital Signs Pulse 93 02/09/24 13:48 BP 130/80 02/09/24 13:48 Pulse Ox 97 02/09/24 13:48 Oxygen Delivery Method Room Air 02/09/24 13:48 Tobacco/Smoking Status: Tobacco use Status Tobacco use date assessed 02/09/24 02/09/24 13:53 Patient Tobacco Use Status Never used Tobacco 02/09/24 13:48 e-Cigarette/Vaping Use Never Used 02/09/24 13:48 Thrive Assessment: Date of Thrive Assessment Date Thrive assessed 12/14/23 02/09/24 13:48 Const General: no acute distress HENMT Head: Yes normal to inspection Neck Neck: Yes supple Resp Effort & Inspection: normal respiratory effort Auscultation: clear to auscultation bilaterally Cardio Rhythm: regular rhythm Heart sounds: S1 normal heart sound present and S2 normal heart sound present GI Inspection: Yes normal to inspection Palpation (GI): Soft to palpation Auscultation: normal bowel sounds Coding Level of Care Code Est Pt Level 4 (41381) Complex EM visit Add On G2211 Diagnoses UTI (urinary tract infection) N39.0 Sepsis A41.9 Gallstones K80.20 Thickened endometrium R93.89 Renal failure N19 Assessment & Plan Assessment & Plan (1) UTI (urinary tract infection): Code(s): N39.0 - Urinary tract infection, site not specified Category: Medical Plan: Repeat urine culture after treatment (2) Sepsis: Comment: Urosepsis E coli bacteremia, acute renal failure hospitalized at [facility] /2024 Code(s): A41.9 - Sepsis, unspecified organism Category: Medical Plan: Check comprehensive panel and CBC (3) Gallstones: Comment: US 01/2024 at [facility] , no acute cholecystitis Code(s): K80.20 - Calculus of gallbladder without cholecystitis without obstruction Category: Medical Plan: Asymptomatic (4) Thickened endometrium: Comment: Pelvic ultrasound, referred to [facility] store loss prevention manager 01/2024 Code(s): R93.89 - Abnormal findings on diagnostic imaging of other specified body structures Category: Medical Plan: Follow-up with store loss prevention manager (5) Renal failure: Comment: acute, improving 01/2024 Code(s): N19 - Unspecified kidney failure Category: Medical Plan: Monitor renal function follow-up in 1 month Orders: Orders Complete Blood Count Auto Diff Today A41.9 - Sepsis, unspecified organism Urine Culture Today A41.9 - Sepsis, unspecified organism, N39.0 - Urinary tract infection, site not specified Comprehensive Met. Panel Today N39.0 - Urinary tract infection, site not specified Medications: Discontinued lisinopril Discontinued Reason: Doctor's Order 30 mg PO DAILY 90 tabs 3RF
== END 2024-02-09 14:20 | disposition home or self-care (01) ==
LOC: HO.HMCC 13:47
PROVIDERS: PCP Internal Medicine; Visit Provider Internal Medicine
DX: N39.0 Urinary tract infection, site not specified (principal); A41.9 Sepsis, unspecified organism; K80.20 Calculus of gallbladder without cholecystitis without obstruction; R93.89 Abnormal findings on diagnostic imaging of other specified body structures; N19 Unspecified kidney failure

== ENCOUNTER 2024-02-09 14:25 | Outpatient (REF) | payer MEDICARE, MEDICAID, SELFPAY ==
[2024-02-09 16:35] LABS: MANUAL DIFF FLAG NO
[2024-02-09 16:48] LABS: Basophils Absolute Auto 0.1 X10*3/uL (0.0-0.2); Basophils Percent Auto 0.6 % (0-2); Eosinophils Absolute Auto 0.2 X10*3/uL (0.0-0.4); Eosinophils Percent Auto 2.8 % (0-4); Hematocrit 29.1 % (37.0-47.0); Hemoglobin 9.8 g/dl (12.0-16.0); Imm Gran Abs Auto 0.03 X10*3/uL (0.00-0.03); Imm Gran Pct Auto 0.4 % (0.0-0.4); Lymphocytes Absolute Auto 1.9 X10*3/uL (1.2-4.9); Lymphocytes Percent Auto 23.6 % (20-40); Mean Corpuscular HGB Conc 33.7 g/dl (31.0-35.0); Mean Corpuscular Hemoglobin 36.7 pg (27.0-33.0); Mean Platelet Volume 10.5 fL (9.4-12.3); Monocytes Absolute Auto 0.8 X10*3/uL (0.1-1.2); Monocytes Percent Auto 10.3 % (2-11); Neutrophils Absolute Auto 4.9 x10*3/uL (2.0-8.3); Neutrophils Percent Auto 62.3 % (45-73); Platelet Count 196 X10*3/uL (160-400); Red Blood Count 2.67 X10*6/uL (4.20-5.50); Red Cell Distribution Width 16.4 % (11.0-16.0); White Blood Count 7.9 X10*3/uL (4.8-10.8)
[2024-02-09 17:06] LABS: Alanine Aminotransferase 21 U/L (0-31); Albumin Level 2.5 g/dL (3.5-5.0); Alkaline Phosphatase 113 U/L (39-117); Anion Gap 11 (12-20); Aspartate Amino Transferase 55 U/L (5-31); Bilirubin Total 2.5 mg/dL (0.0-1.0); Blood Urea Nitrogen 12 mg/dL (9-16); Calcium 8.6 mg/dL (8.4-10.2); Carbon Dioxide 21 mmol/L (22-29); Chloride 105 mmol/L (96-108); Estimated Glomerular Filt Rate 55; Glucose Random 113 mg/dL (60-115); Potassium 4.3 mmol/L (3.3-5.1); Sodium 134 mmol/L (135-145); Total Protein 6.2 g/dL (6.5-8.0)
== END 2024-02-09 14:26 | disposition home or self-care (01) ==
LOC: HO.HMGCLDS 14:25
PROVIDERS: PCP Internal Medicine; Visit Provider Internal Medicine
DX: A41.9 Sepsis, unspecified organism (principal); N39.0 Urinary tract infection, site not specified
CPT/HCPCS: 36415; 80053; 85025; 87086

== ENCOUNTER 2024-02-28 12:32 | Outpatient (REF) | payer MEDICARE, MEDICAID, SELFPAY ==
[2024-02-28 16:19] LABS: MANUAL DIFF FLAG NO
[2024-02-28 16:25] LABS: Basophils Absolute Auto 0.1 X10*3/uL (0.0-0.2); Basophils Percent Auto 0.8 % (0-2); Eosinophils Absolute Auto 0.2 X10*3/uL (0.0-0.4); Eosinophils Percent Auto 2.8 % (0-4); Hematocrit 35.5 % (37.0-47.0); Hemoglobin 11.9 g/dl (12.0-16.0); Imm Gran Abs Auto 0.01 X10*3/uL (0.00-0.03); Imm Gran Pct Auto 0.2 % (0.0-0.4); Lymphocytes Absolute Auto 2.3 X10*3/uL (1.2-4.9); Lymphocytes Percent Auto 36.3 % (20-40); Mean Corpuscular HGB Conc 33.5 g/dl (31.0-35.0); Mean Corpuscular Hemoglobin 35.4 pg (27.0-33.0); Mean Corpuscular Volume 105.7 fL (80.0-98.0); Mean Platelet Volume 11.2 fL (9.4-12.3); Monocytes Absolute Auto 0.6 X10*3/uL (0.1-1.2); Monocytes Percent Auto 9.2 % (2-11); Neutrophils Absolute Auto 3.3 x10*3/uL (2.0-8.3); Neutrophils Percent Auto 50.7 % (45-73); Platelet Count 159 X10*3/uL (160-400); Red Blood Count 3.36 X10*6/uL (4.20-5.50); Red Cell Distribution Width 13.4 % (11.0-16.0); White Blood Count 6.4 X10*3/uL (4.8-10.8)
[2024-02-28 17:47] LABS: Folate 6.7 ng/mL (> or = 4.0); Vitamin B12 479 pg/mL (200-900)
[2024-02-28 18:19] LABS: Alanine Aminotransferase 9 U/L (0-31); Albumin Level 2.6 g/dL (3.5-5.0); Alkaline Phosphatase 87 U/L (39-117); Anion Gap 11 (12-20); Aspartate Amino Transferase 38 U/L (5-31); Bilirubin Total 1.3 mg/dL (0.0-1.0); Blood Urea Nitrogen 15 mg/dL (9-16); Calcium 8.3 mg/dL (8.4-10.2); Carbon Dioxide 25 mmol/L (22-29); Chloride 107 mmol/L (96-108); Estimated Glomerular Filt Rate 46; Glucose Random 152 mg/dL (60-115); Iron 125 mcg/dL (30-160); Percent Iron Saturation 62 % (15-50); Potassium 4.1 mmol/L (3.3-5.1); Sodium 139 mmol/L (135-145); Total Iron Binding Capacity 203 mcg/dL (228-428); Total Protein 6.3 g/dL (6.5-8.0); Unsaturated Iron Binding 78 ug/dL
== END 2024-02-28 12:33 | disposition home or self-care (01) ==
LOC: HO.HMGCLDS 12:32
PROVIDERS: PCP Internal Medicine; Visit Provider Internal Medicine
DX: N19 Unspecified kidney failure (principal); D64.9 Anemia, unspecified
CPT/HCPCS: 36415; 80053; 82607; 82746; 83540; 85025

== ENCOUNTER 2024-03-20 13:44 | Outpatient (REF) | payer MEDICARE, MEDICAID, SELFPAY ==
[2024-03-20 16:04] LABS: MANUAL DIFF FLAG NO
[2024-03-20 16:12] LABS: Basophils Absolute Auto 0.1 X10*3/uL (0.0-0.2); Basophils Percent Auto 0.7 % (0-2); Eosinophils Absolute Auto 0.1 X10*3/uL (0.0-0.4); Eosinophils Percent Auto 1.8 % (0-4); Hematocrit 36.7 % (37.0-47.0); Hemoglobin 12.9 g/dl (12.0-16.0); Imm Gran Abs Auto 0.02 X10*3/uL (0.00-0.03); Imm Gran Pct Auto 0.3 % (0.0-0.4); Lymphocytes Absolute Auto 3.2 X10*3/uL (1.2-4.9); Mean Corpuscular HGB Conc 35.1 g/dl (31.0-35.0); Mean Corpuscular Hemoglobin 35.2 pg (27.0-33.0); Mean Corpuscular Volume 100.3 fL (80.0-98.0); Monocytes Absolute Auto 0.7 X10*3/uL (0.1-1.2); Monocytes Percent Auto 10.1 % (2-11); Neutrophils Percent Auto 42.1 % (45-73); Platelet Count 142 X10*3/uL (160-400); Red Blood Count 3.66 X10*6/uL (4.20-5.50); Red Cell Distribution Width 14.7 % (11.0-16.0); White Blood Count 7.2 X10*3/uL (4.8-10.8)
[2024-03-20 16:16] LABS: Estimated Average Glucose 94 mg/dL; Hemoglobin A1C 98.8167 umol/L; Hemoglobin A1c % 4.9 % (<6.0); Total Hemoglobin (HGBA1C) 3336.1124 umol/L
[2024-03-20 16:48] LABS: Albumin Level 2.6 g/dL (3.5-5.0); Anion Gap 14 (12-20); Aspartate Amino Transferase 58 U/L (5-31); Bilirubin Total 1.1 mg/dL (0.0-1.0); Blood Urea Nitrogen 18 mg/dL (9-16); Calcium 8.8 mg/dL (8.4-10.2); Carbon Dioxide 27 mmol/L (22-29); Chloride 102 mmol/L (96-108); Estimated Glomerular Filt Rate 43; Glucose Random 178 mg/dL (60-115); Iron 143 mcg/dL (30-160); Percent Iron Saturation 85 % (15-50); Potassium 4.4 mmol/L (3.3-5.1); Sodium 139 mmol/L (135-145); Total Iron Binding Capacity 168 mcg/dL (228-428); Total Protein 6.6 g/dL (6.5-8.0); Unsaturated Iron Binding < 25 ug/dL
[2024-03-20 17:22] LABS: Alanine Aminotransferase 15 U/L (0-31); Alkaline Phosphatase 116 U/L (39-117)
== END 2024-03-20 13:45 | disposition home or self-care (01) ==
LOC: HO.HMGCLDS 13:44
PROVIDERS: PCP Internal Medicine; Visit Provider Internal Medicine
DX: D64.9 Anemia, unspecified (principal); R73.9 Hyperglycemia, unspecified; I10 Essential (primary) hypertension; N19 Unspecified kidney failure; R82.79 Other abnormal findings on microbiological examination of urine
CPT/HCPCS: 36415; 80053; 83036; 83540; 85025; 87086; 87088; 87186; 99212

== ENCOUNTER 2024-03-20 13:44 | Outpatient (AMB) | payer MEDICARE, MEDICAID, SELFPAY ==
[2024-03-20 13:45] VITALS: BP 110/76; PULSE 85; O2SAT 98; BMI 26.4
--- NOTE | 2024-03-20 13:45 | MHC.PC.OV ---
Vital Signs 03/20/24 13:45 Height 5 ft Weight 135 lb BMI 26.4 BP 110/76 Blood Pressure Location Rt brachial Position Sitting Pulse 85 Pulse Source Pulse Oximeter Pulse Oximetry (%) 98 Oxygen Delivery Method Room Air Intake Visit Reasons: 1 month follow up - see comment Intake Note: Pt is here today for 1 month follow up visit. Allergies ciprofloxacin [Cipro] Allergy (Unknown, Verified 03/20/24 13:46) weakness dizziness metronidazole [Flagyl] Allergy (Unknown, Verified 03/20/24 13:46) Dizziness Medication List - Last Reconciled 03/20/24 by Jane Plunkett MD cholecalciferol (vitamin D3) 50 mcg PO DAILY [iron PO] latanoprost 0.005% 0 drps ophthalmic (eye) metoprolol succinate ER 25 mg PO DAILY omega-3 fatty acids (Fish Oil Concentrate) 1,000 mg PO DAILY pravastatin 40 mg PO DAILY Tobacco use date assessed: 03/20/24 Dental Screening Dental Screen Date: 12/14/23 HPI 1 month follow up - see comment HPI Details Patient presents for the follow-up on hypertension history of acute renal failure with urosepsis. Patient has been recovering able to ambulate but still feeling weak and has decreased appetite. She denies fever chills nausea vomiting abdominal pain dysuria frequency. Patient complains of chronic constipation and has been taking MiraLax with good relief. [facility] Medical History Hyperglycemia Annual physical exam Hyperlipidemia HTN (hypertension) Normal colonoscopy Abdominal wall hernia Mammogram normal Diverticulosis Surgical History Hx of colectomy Total knee replacement status Family History Father No problems noted. Mother Hypertension Social History Household Members Other:: , retired, 2 adult children, 11 grandchildren Housing: House Alcohol intake: current Alcohol intake frequency: holidays/special occasions only Patient Tobacco Use Status: Never used Tobacco e-Cigarette/Vaping Use: Never Used service: No Current occupational status: retired Cognitive needs: No Hearing needs: No Vision needs: Yes Questionnaire Thrive Questionnaire Date Thrive assessed: 12/14/23 FELA-7 AMB Questionnaire FELA-7 Date FELA - 7 assessed: 12/14/23 Source: Developed by Drs. Tal Metcalf, Mary Lou Higginbotham, Orlando Brown and colleagues, with an educational char from [employer]. Review of Systems Const All systems reviewed & are unremarkable except as noted in HPI and below Eyes Reports no additional complaints ENT Reports no additional complaints Card Reports no additional complaints Resp Reports no additional complaints GI Reports no additional complaints Reports no additional complaints Physical exam (Primary Care) Vital Signs: Last Vital Signs Pulse 85 03/20/24 13:45 BP 110/76 03/20/24 13:45 Pulse Ox 98 03/20/24 13:45 Oxygen Delivery Method Room Air 03/20/24 13:45 BMI result Body Mass Index 26.4 Tobacco/Smoking Status: Tobacco use Status Tobacco use date assessed 03/20/24 03/20/24 13:52 Patient Tobacco Use Status Never used Tobacco 03/20/24 13:52 e-Cigarette/Vaping Use Never Used 03/20/24 13:52 Thrive Assessment: Date of Thrive Assessment Date Thrive assessed 12/14/23 03/20/24 13:52 Const General: no acute distress HENMT Head: Yes normal to inspection Resp Effort & Inspection: normal respiratory effort Auscultation: clear to auscultation bilaterally Cardio Rhythm: regular rhythm Heart sounds: S1 normal heart sound present and S2 normal heart sound present GI Inspection: Yes normal to inspection Palpation (GI): Soft to palpation Percussion: Yes normal to percussion Auscultation: normal bowel sounds Coding Level of Care Code Est Pt Level 4 (62978) Diagnoses Anemia D64.9 Hyperglycemia R73.9 HTN (hypertension) I10 Renal failure N19 Assessment & Plan Assessment & Plan (1) Anemia: Code(s): D64.9 - Anemia, unspecified Category: Medical Plan: Check CBC and iron count (2) Hyperglycemia: Code(s): R73.9 - Hyperglycemia, unspecified Category: Medical Plan: ADA diet discussed with the patient check A1c (3) HTN (hypertension): Comment: White coat syndrome Code(s): I10 - Essential (primary) hypertension Category: Medical Plan: Continue metoprolol (4) Renal failure: Comment: acute, improving 01/2024 Code(s): N19 - Unspecified kidney failure Category: Medical Plan: Monitor renal function and avoid nephrotoxins, check urine culture, follow-up in 3 months Orders: Orders Comprehensive Met. Panel Today D64.9 - Anemia, unspecified, I10 - Essential (primary) hypertension, R73.9 - Hyperglycemia, unspecified IRON PROFILE Today D64.9 - Anemia, unspecified, I10 - Essential (primary) hypertension, R73.9 - Hyperglycemia, unspecified Urine Culture Today N19 - Unspecified kidney failure Hemoglobin A1c Today R73.9 - Hyperglycemia, unspecified Complete Blood Count Auto Diff Today D64.9 - Anemia, unspecified, I10 - Essential (primary) hypertension, R73.9 - Hyperglycemia, unspecified Medications: Discontinued pravastatin Discontinued Reason: Doctor's Order 40 mg PO DAILY 90 tabs 3RF
== END 2024-03-20 14:17 | disposition home or self-care (01) ==
PROVIDERS: PCP Internal Medicine; Visit Provider Internal Medicine
DX: D64.9 Anemia, unspecified (principal); R73.9 Hyperglycemia, unspecified; I10 Essential (primary) hypertension; N19 Unspecified kidney failure

== ENCOUNTER 2024-12-19 10:13 | Outpatient (AMB) | payer MEDICARE, MEDICAID, SELFPAY ==
[2024-12-19 10:18] VITALS: BP 106/78; PULSE 83; RESP 19; TEMP 36.4; O2SAT 99; BMI 26.2
--- NOTE | 2024-12-19 10:18 | A.OFFPC_ITS ---
Vital Signs 12/19/24 10:18 Height 5 ft Weight 134 lb BMI 26.2 BP 106/78 Blood Pressure Location Rt brachial Position Sitting Respiration 19 Pulse 83 Pulse Source Pulse Oximeter Temp 97.6 F Temp Source Oral Pulse Oximetry (%) 99 Oxygen Delivery Method Room Air Intake Visit Reasons: PE/secondary covers Allergies ciprofloxacin (Cipro) Allergy (Unknown, Verified 12/19/24 10:18) weakness dizziness metronidazole (Flagyl) Allergy (Unknown, Verified 12/19/24 10:18) Dizziness Medication List - Last Reconciled 12/19/24 by Jane Plunkett MD cholecalciferol (vitamin D3) 50 mcg PO DAILY [iron PO] latanoprost 0.005% 0 drps ophthalmic (eye) metoprolol succinate ER 25 mg PO DAILY omega-3 fatty acids (Fish Oil Concentrate) 1,000 mg PO DAILY Tobacco use date assessed: 12/19/24 Fall risk assessment: No Falls in past year Last assessed Fall Risk: 12/19/24 Dental Screening Dental Screen Date: 12/19/24 Did you have a dental visit in the last 12 months?: No Did you have a dental problem in the last 6 months where you did not have access to dental care?: No Was dental information given to patient?: Patient declined HPI PE/secondary covers HPI Details Patient presents for physical. [facility] Medical History (Updated 12/19/24 @ 11:07 by Jane Plunkett MD) Sepsis Gallstones Atrial tachycardia Hyperglycemia Annual physical exam Hyperlipidemia HTN (hypertension) Normal colonoscopy Abdominal wall hernia Mammogram normal Diverticulosis Surgical History Hx of colectomy Total knee replacement status Family History Father No problems noted. Mother Hypertension Social History Household Members Other:: , retired, 2 adult children, 11 grandchildren Housing: House Alcohol intake: current Alcohol intake frequency: holidays/special occasions only Patient Tobacco Use Status: Never used Tobacco e-Cigarette/Vaping Use: Never Used service: No Current occupational status: retired Cognitive needs: No Hearing needs: No Vision needs: Yes Questionnaire PHQ-9 Over the last 2 weeks, how often have you been bothered by any of the following problems? 1. Little interest or pleasure in doing things: not at all 2. Feeling down, depressed, or hopeless: not at all 3. Trouble falling or staying asleep, or sleeping too much: not at all 4. Feeling tired or having little energy: not at all 5. Poor appetite or overeating: not at all 6. Feeling bad about yourself - or that you are a failure or have let yourself or your family down: not at all 7. Trouble concentrating on things, such as reading the newspaper or watching te levision: not at all 8. Moving or speaking so slowly that other people could have noticed. Or the opposite - being so fidgety or restless that you have been moving around a lot more than usual: not at all 9. Thoughts that you would be better off or of hurting yourself in some way: not at all Total score: 0 Depression Screening Interpretation: Negative Depression Screening Done: Yes 99792 - PHQ-9 Billing: Yes Source: Developed by Drs. Tal Metcalf, Mary Lou Higginbotham, Orlando Brown and colleagues, with an educational char from [employer]. Thrive Questionnaire Date Thrive assessed: 12/19/24 I am a: Patient What is your living situation today?: I choose not to answer this question Within the past 12 months, did the food you bought not last and you didn't have the money to get more?: I choose not to answer this question Within the past 12 months, did you worry whether your food would run out before you got money to buy more?: I choose not to answer this question Do you have trouble paying for medicines?: I choose not to answer this question Do you have trouble getting transportation to medical appointments?: I choose not to answer this question Do you have trouble paying your heating and electricity bill?: I choose not to answer this question Do you have trouble taking care of your child, family member or friend?: I choose not to answer this question Do you have trouble with day-to-day activities such as bathing, preparing meals, shopping, managing finances, etc.?: I choose not to answer this question Are you currently unemployed and looking for a job?: I choose not to answer this question Are you interested in more education?: I choose not to answer this question Please select the resources that you would like help with: None THRIVE Score: 0 AUDIT C Alcohol Use Questionnaire (AUDIT-C) 1. How often do you have a drink containing alcohol?: Never 3. How often do you have six or more drinks on one occasion?: Never Total Score: 0 FELA-7 AMB Questionnaire FELA-7 Date FELA - 7 assessed: 12/19/24 Feeling nervous, anxious, or on edge: 0 = Not at all Not being able to stop or control worryin = Not at all Worrying too much about different things: 0 = Not at all Trouble relaxin = Not at all Being so restless that it is hard to sit still: 0 = Not at all Becoming easily annoyed or irritable: 0 = Not at all Feeling afraid as if something awful might happen: 0 = Not at all Total FELA-7 score (0-4 normal; 5-9 mild; 10-14 moderate; 15-21 severe): 0 Source: Developed by Drs. Tal Metcalf, Mary Lou Higginbotham, Orlando Brown and colleagues, with an educational char from [employer]. FELA-7 Assessment Billing FELA-7 Assessment Tool: FELA-7 Assessment 57720 Review of Systems Const All systems reviewed & are unremarkable except as noted in HPI and below Eyes Reports no additional complaints ENT Reports no additional complaints Card Reports no additional complaints Resp Reports no additional complaints GI Reports no additional complaints Reports no additional complaints Physical exam (Primary Care) Vital Signs: Last Vital Signs Temp 97.6 F 12/19/24 10:18 Pulse 83 12/19/24 10:18 Resp 19 12/19/24 10:18 BP 106/78 12/19/24 10:18 Pulse Ox 99 12/19/24 10:18 Oxygen Delivery Method Room Air 12/19/24 10:18 BMI result Body Mass Index 26.2 Tobacco/Smoking Status: Tobacco use Status Tobacco use date assessed 12/19/24 12/19/24 10:19 Patient Tobacco Use Status Never used Tobacco 12/19/24 10:19 e-Cigarette/Vaping Use Never Used 12/19/24 10:19 PHQ-9: PHQ-9 Score PHQ-9: Total score 0 12/19/24 10:33 Depression Screening Interpretation: Negative Thrive Assessment: Date of Thrive Assessment Date Thrive assessed 12/19/24 12/19/24 10:19 Const General: no acute distress HENMT Head: Yes normal to inspection Ears: TM's normal bilaterally Face and sinus: Yes normal facial exam Throat: Yes posterior oropharynx normal Eyes General: appearance normal, both eyes and all related structures Neck Neck: Yes supple Resp Effort & Inspection: normal respiratory effort Auscultation: clear to auscultation bilaterally Cardio Rhythm: regular rhythm Heart sounds: S1 normal heart sound present and S2 normal heart sound present GI Inspection: Yes normal to inspection Palpation (GI): Soft to palpation Percussion: Yes normal to percussion Auscultation: normal bowel sounds Coding Level of Care Code Est Pt Prev Care >65y(66015) Diagnoses HTN (hypertension) I10 Atrial tachycardia I47.1 Annual physical exam Z00. UTI (urinary tract infection) N39.0 Additional Codes FELA-7 Assessment Billing - FELA-7 Assessment Tool: FELA-7 Assessment 62969 ([id number]) PHQ-9 - 56723 - PHQ-9 Billing: Yes ([id number]) Assessment & Plan Assessment & Plan (1) HTN (hypertension): Comment: White coat syndrome Code(s): I10 - Essential (primary) hypertension Category: Medical Plan: cont Metoprolol (2) Atrial tachycardia: Comment: Holter 10/01, frequent APCs, echo with hyperdynamic left ventricular systolic function, heavy mitral valve calcifications mild mitral regurgitation, mild to moderate mitral stenosis 10/01, pt could not tolerate 50 mg of Metoprolol Code(s): I47.1 - Supraventricular tachycardia Category: Medical Plan: cont Metoprolol (3) Annual physical exam: Code(s): Z00.00 - Encounter for general adult medical examination without abnormal findings Category: Medical Plan: Well-balanced diet regular exercise discussed with the patient. She will return for fasting blood work (4) UTI (urinary tract infection): Code(s): N39.0 - Urinary tract infection, site not specified Category: Medical Plan: check UA Orders: Orders Lipid Panel Today I10 - Essential (primary) hypertension, I47.1 - Supraventricular tachycardia, R73.9 - Hyperglycemia, unspecified, Z00.00 - Encounter for general adult medical examination without abnormal findings TSH reflex Free T4 Today I10 - Essential (primary) hypertension, I47.1 - Supraventricular tachycardia, R73.9 - Hyperglycemia, unspecified, Z00.00 - Encounter for general adult medical examination without abnormal findings IRON PROFILE Today I10 - Essential (primary) hypertension, I47.1 - Supraventricular tachycardia, R73.9 - Hyperglycemia, unspecified, Z00.00 - Encounter for general adult medical examination without abnormal findings UA w Microscopic Today N39.0 - Urinary tract infection, site not specified Urine Culture Today N39.0 - Urinary tract infection, site not specified Hemoglobin A1c Today R73.9 - Hyperglycemia, unspecified Comprehensive [place]. Panel Fast Today I10 - Essential (primary) hypertension, I47.1 - Supraventricular tachycardia, R73.9 - Hyperglycemia, unspecified, Z00.00 - Encounter for general adult medical examination without abnormal findings Complete Blood Count Auto Diff Today I10 - Essential (primary) hypertension, I47.1 - Supraventricular tachycardia, R73.9 - Hyperglycemia, unspecified, Z00.00 - Encounter for general adult medical examination without abnormal findings Vitamin D 25-OH Total Today E55.9 - Vitamin D deficiency, unspecified, I10 - Essential (primary) hypertension Vitamin B12 and Folate Today E53.8 - Deficiency of other specified B group vitamins, E55.9 - Vitamin D deficiency, unspecified Medications: Refilled metoprolol succinate ER 25 mg PO DAILY 90 tabs 3RF
--- OUTSIDE RECORDS SUMMARY | 2024-12-19 12:25 | XMS_ITS | Clinical Summary ---
Author Organization [facility] Address [address] [place] [address] Care Team Providers [employer] Name Role Phone Unavailable Primary Care Provider Unavailabl e Active Problems Problem Noted Date Diagnosed Date Hereditary hemochromatosis 09/10/2019 High serum ferritin 06/14/2019 Macrocytosis 06/14/2019 Elevated LFTs 11/06/2018 Essential hypertension 07/09/2008 Social History Tobacco Use Types Packs/Day Years Used Date Smoking Tobacco: Never Assessed Sex and Gender Information Value Date Recorded Sex Assigned at Not on file Gender Identity Not on file Sexual Orientation Not on file Plan of Treatment Health Maintenance Due Date Last Done Comments COVID-19 Vaccine (#1) 02/23/1941 Depression Screening 1954 Preventative Health Evaluation 1960 DTap / Tdap / Td (1 - Tdap) 1961 Shingrix-Zoster Vaccine (1 of 2) 1992 Fall Risk Assessment 08/24/2007 Osteoporosis Screening (DEXA Scan) 08/24/2007 RSV Adult > 60+ Yrs or Pregn ant (1 - 1-dose 75+ series) 2017 Pneumococcal Vaccine (2 of 2 - PPSV23 or PCV20) 07/29/2018 07/29/2017 Influenza Vaccine (#1) 2024 Hepatitis B Vaccines Aged Out No long er eligible based on patient's age to complete this topic RSV Ped < 20 months Aged Out No longe r eligible based on patient's age to complete this topic
== END 2024-12-19 11:00 | disposition home or self-care (01) ==
LOC: HO.HMCC 10:14
PROVIDERS: PCP Internal Medicine; Visit Provider Internal Medicine
DX: Z00.00 Encounter for general adult medical examination without abnormal findings (principal); I10 Essential (primary) hypertension; I47.10 Supraventricular tachycardia, unspecified; N39.0 Urinary tract infection, site not specified

== ENCOUNTER → 2024-12-19 10:13 | Outpatient (BNVA) | payer MEDICARE, MEDICAID, SELFPAY | PROVIDERS: PCP Internal Medicine; Visit Provider Internal Medicine | DX: Z00.00 Encounter for general adult medical examination without abnormal findings (principal); I10 Essential (primary) hypertension; I47.10 Supraventricular tachycardia, unspecified; N39.0 Urinary tract infection, site not specified; E55.9 Vitamin D deficiency, unspecified; E53.8 Deficiency of other specified B group vitamins | CPT/HCPCS: 96127; 99397 ==